=== PATIENT | male | born 1990 | race Caucasian/White ===

== ENCOUNTER 2019-09-06 11:30 | Inpatient (IN) | payer MEDICAID, OTHER ==
[~2019-09-06] VITALS: Ht 167.6 cm; Wt 65.4 kg
--- NOTE | 2019-09-06 11:41 | NUR ---
BIB RA, PT IS REFUSES TO EAT X 3 DAYS. TO ER BED 14, HOOKED TO MONITOR, CHANGED TO HOSP GOWN, PROVIDED W WARM BLANKET, BREATHING EVEN AND UNLABORED, NAD NOTED. AWAITING MD ALBERT
--- NOTE | 2019-09-06 11:50 | NUR ---
DR CID AT BEDSIDE
[2019-09-06] MEDS ORDERED: OLANZAPINE 5 MG TABLET PO ONE (12:00)
[2019-09-06 12:12] LABS: BASOPHILS % (AUTO) 0.6 % (0.0-2.0); EOSINOPHILS % (AUTO) 0.3 % (0.0-6.0); HEMATOCRIT 47 % (39-51); HEMOGLOBIN 15.8 g/dL (13.5-17.5); LYMPHOCYTES # (AUTO) 1.5 /CMM (0.8-4.8); LYMPHOCYTES % (AUTO) 16.9 % (20.0-44.0); MEAN CORPUSCULAR HGB CONC 34 g/dl (31.0-36.0); MEAN CORPUSCULAR VOLUME 91 fL (80-96); MONOCYTES # (AUTO) 0.4 /CMM (0.1-1.30); NEUTROPHILS # (AUTO) 6.6 /CMM (1.8-8.9); NEUTROPHILS % (AUTO) 77.2 % (43.0-81.0); PLATELET COUNT (AUTO) 222 /CMM (150-450); RED BLOOD CELL COUNT(AUTO) 5.16 MIL/uL (4.5-6.0); WHITE BLOOD COUNT (AUTO) 8.6 K/uL (4.3-11.0)
[2019-09-06] MEDS ORDERED: OLANZAPINE 5 MG TABLET ONE (12:16)
[2019-09-06] MEDS ORDERED: OLANZAPINE 10 MG VIAL IM ONE ×2 (12:26→12:30)
--- NOTE | 2019-09-06 12:29 | NUR ---
SHELLY DOMINGUEZ [phone] (SISTER) ADDY FUENTES [phone] ([id number])
[2019-09-06 12:34] LABS: ACETAMINOPHEN 0 ug/ml (10-30); ALANINE AMINOTRANSFERASE 16 U/L (12-78); ALBUMIN 4.9 g/dL (3.4-5.0); ALCOHOL, BLOOD < 3 mg/dL (0-0); ALKALINE PHOSPHATASE 75 U/L (46-116); ASPARTATE AMINOTRANSFERASE 14 U/L (15-37); BILIRUBIN,DIRECT 0.1 mg/dL (0.0-0.2); BILIRUBIN,TOTAL 0.6 mg/dL (0.2-1.0); CARBON DIOXIDE 18 mmol/L (21-32); CHLORIDE 103 mmol/L (98-107); GLUCOSE 70 mg/dL (74-106); POTASSIUM 4.2 mmol/L (3.5-5.1); SALICYLATE 2.9 mg/dL (2.8-20.0); SODIUM SERUM 140 mmol/L (136-145); UREA NITROGEN, BLOOD 26 mg/dL (7-18)
--- NOTE | 2019-09-06 17:21 | NUR ---
THERAPY DIRECTOR CAITY ETA 1 HOUR
--- NOTE | 2019-09-06 19:45 | NUR ---
GAVE MOVESHEET TO ADMITTING FOR INSURANCE AUTH
[2019-09-06] MEDS ORDERED: LIDOCAINE 2% JEL UROJET 10 ML MM ONE (19:54)
[2019-09-06] MEDS ORDERED: IV NS 0.9% 1,000 ML IV ONE (20:00)
--- NOTE | 2019-09-06 20:12 | NUR ---
ADDY FUENTES- BROTHER IN LAW [phone]
--- NOTE | 2019-09-06 20:13 | NUR ---
DENNIS DOMINGUEZ - SISTER [phone]
[2019-09-06] MEDS ORDERED: LORAZEPAM INJ 2 MG/ML VIAL IV ONE (20:30)
[2019-09-06] MEDS ORDERED: LORAZEPAM INJ 2 MG/ML VIAL ONE (20:53)
--- NOTE | 2019-09-06 20:58 | NUR ---
BED 324-2
--- NOTE | 2019-09-06 21:34 | NUR ---
REPORT GIVEN TO RENETTA MAURO FOR CONTINUATION OF CARE.
[2019-09-06 21:50] VITALS: BP 107/71
--- NOTE | 2019-09-06 21:55 | NUR ---
PT TRANSFERED TO VIA [facility] WITH RN AND EMT.
[2019-09-06 22:00] VITALS: BP 107/71
--- NOTE | 2019-09-06 22:00 | NUR ---
PARTS COUNTER CLERKCSR TECHNICIAN NOTES RECEIVED REPORT FROM [facility] AT 213. PATIENT TRANSFERRED FROM ER VIA [facility] AT 2150 IN STABLE IN CONDITION. TELE MONITOR READING SINUS RHYTHM, HEART RATE 86. ON ROOM AIR. NO S/S OF ACUTE RESPIRATORY DISTRESS. PATIENT IS NON-VERBAL, BUT IS ABLE TO OPEN EYES AND FOLLOW GAZE. IV PRESENT ON LEFT FOREARM, SIZE 20, INTACT & PATENT, HEP LOCKED. PATIENT NOT ABLE TO GIVE ANY INFORMATION ABOUT PAST MEDICAL HISTORY OR MEDICATIONS TAKEN AT HOME AT THIS TIME DUE TO CONDITION. PATIENT UNABLE TO SIGN BELONGINGS LIST, FORM SIGNED BY TWO NURSES. VITAL SIGNS - BP: 107/71 HR: 84 RR: 18 TEMP: 98.0 SPO2: 100. BED LOCKED, ALARM ON, SIDE RAILS X2, CALL LIGHT WITHIN REACH. WILL CONTINUE TO MONITOR.
--- NOTE | 2019-09-06 22:15 | NUR ---
PSYCHOLOGICAL SCIENCE PROFESSOR NOTES PATIENT VERBALLY RESPONDED WHEN REMOVING SOCKS; STATED "NO, I WANT TO KEEP THEM ON". WHEN ASKED ABOUT PAST MEDICAL HISTORY, PATIENT RESPONDED NO BY SHAKING HEAD. WHEN ASKED ABOUT MEDICATIONS TAKEN AT HOME, PATIENT STATED "I CAN'T REMEMBER".
[2019-09-06] MEDS ORDERED: ONDANSETRON HCL/PF 4 MG/2 ML VIAL IVP PRN (22:30)
[2019-09-06] MEDS ORDERED: Z GUARD REMEDY 2 OZ OINT TP PRN (22:30)
[2019-09-06] MEDS ORDERED: OLANZAPINE 10 MG VIAL IM PRN (22:30)
--- NOTE | 2019-09-06 22:45 | NUR ---
MS RN NOTES BENZTROPINE NOT STOCKED IN PYXIS. FAXED MED ORDER TO NURSING MEDICAL SECRETARY TEACHER IN ORDER TO RECEIVE MED STOCKED IN NIGHT LOCKER.
[2019-09-06] MEDS: IV D5/0.45 NACL 1,000 ML IV PRN (22:46)
[2019-09-06] MEDS: ENOXAPARIN SODIUM 40 MG/0.4 ML DISP.SYRIN SQ SCH (22:47)
[2019-09-06] MEDS ORDERED: BENZTROPINE MESYLATE (2MG/2ML) 2 MG/2 ML AMPUL ONE (23:18)
[2019-09-07] LABS: THYROID STIMULATING HORMONE 1.7 uIU/mL (0.358-3.74)
[2019-09-07 00:01] VITALS: BP 113/69
[2019-09-07] MEDS: BENZTROPINE MESYLATE (2MG/2ML) 2 MG/2 ML AMPUL IM SCH ×2 (00:21→09:00)
[2019-09-07 06:40] LABS: BASOPHILS % (AUTO) 0.3 % (0.0-2.0); EOSINOPHILS % (AUTO) 0.5 % (0.0-6.0); HEMATOCRIT 43 % (39-51); HEMOGLOBIN 14.5 g/dL (13.5-17.5); LYMPHOCYTES % (AUTO) 20.6 % (20.0-44.0); MEAN CORPUSCULAR HGB CONC 33 g/dl (31.0-36.0); MEAN CORPUSCULAR VOLUME 91 fL (80-96); MONOCYTES # (AUTO) 0.7 /CMM (0.1-1.30); NEUTROPHILS # (AUTO) 6.8 /CMM (1.8-8.9); NEUTROPHILS % (AUTO) 71.6 % (43.0-81.0); PLATELET COUNT (AUTO) 205 /CMM (150-450); WHITE BLOOD COUNT (AUTO) 9.5 K/uL (4.3-11.0)
[2019-09-07 06:47] LABS: ALBUMIN 4.2 g/dL (3.4-5.0); BILIRUBIN,TOTAL 0.4 mg/dL (0.2-1.0); CALCIUM, SERUM 9.3 mg/dL (8.5-10.1); CREATININE 1.1 mg/dL (0.6-1.3); POTASSIUM 3.9 mmol/L (3.5-5.1); TOTAL PROTEIN, SERUM 7.8 g/dL (6.4-8.2)
[2019-09-07 07:06] LABS: THYROID STIMULATING HORMONE 1.323 uIU/mL (0.358-3.74)
--- NOTE | 2019-09-07 07:30 | NUR ---
MS/RN Opening Note Patient received awake and alert, able to responds all stimuli. Pt none verbal in this morning, does no appears pain or any discomfort, respiratory even and unlabored in room air. Skin is warm to touch, intact IV site. Kept lower position of bed with elevated HOB. Call light within reach, will continue to monitor.
--- NOTE | 2019-09-07 07:43 | NUR ---
MS RN CLOSING NOTES PATIENT SLEEPING IN BED. A/O X1 AND IS NONVERBAL. NO S/S OF ACUTE RESPIRATORY DISTRESS AND PAIN. IV PRESENT ON LEFT FOREARM, SIZE 20, INTACT & PATENT, HEP LOCKED. BED LOCKED, ALARM ON, SIDE RAILS X2, CALL LIGHT WITHIN REACH. WILL ENDORSE TO DAY SHIFT NURSE TO FOLLOW PLAN OF CARE.
[2019-09-07 08:00] VITALS: BP 95/59
[2019-09-07] MEDS ORDERED: RISP0.2515 PO (08:40)
[2019-09-07] MEDS ORDERED: LORA-259 PO (08:40)
[2019-09-07] MEDS ORDERED: ESCI10TA PO (08:40)
--- NOTE | 2019-09-07 08:42 | NUR ---
BAFFLE MOUNTER/MED RECON MED-RECON UPDATED, INFO OBTAINED FROM SHELLY (SISTER) AND ADDY (BRO IN-LAW) [phone]. PER FAMILY "HE ONLY TAKES 3 MEDICATION AND NOTHING FOR SEIZURE". PRIMARY NURSE AWARE.
--- NOTE | 2019-09-07 11:00 | NUR ---
Pt refused Med/Benztropine x 3.
--- NOTE | 2019-09-07 13:27 | NUR ---
Social service consult requested by Dr. Sotelo for accidental overdose. Per MD notes and chart review, pt is a 29-year-old male who was brought to [facility] by ambulance for refusing to eat for the past 3 days. Pt has a history of psychiatric illness. NARAYAN met with pt. bedside along with case fitter Celia. Pt is catatonic and will not answer questions. He has reportedly been like this since he arrived to the ED yesterday. Pt was medicated with Zyprexa 10 mg yesterday with no results. CHINCHILLA MACHINE OPERATOR called pt's sister Stacy and left her a voicemail message requesting a callback.
--- NOTE | 2019-09-07 14:08 | NUR ---
[facility] received a call back from pt's brother in law Willy since pt's sister is Welsh speaking. Per Willy, pt. lives with his aunt. Pt. has a history of Catatonia. Willy reported that pt. has not been eating for the past 3 days. He refuses to go out or do anything. Per Willy, pt tends to stay in bed all day. Pt. is Welsh speaking only. Willy states, pt has a psychiatric diagnosis of Depression and Schizophrenia. Pt currently does not have any medical insurance. Pt did have insurance in the past, however family is unaware as to why he stopped having medical insurance. Family is available, if needed.
--- NOTE | 2019-09-07 14:11 | NUR ---
NARAYAN received a call from Deborah, Clinical tenant relations coordinator at [facility] . Per Deborah, pt has been receiving mental health services with them since February 27, 2019. Per Cristine, pt has a history of Catatonia. Pt last saw his psychiatrist on 08/26/2019 and was prescribed Lexapro, Ativan and Risperdal. Per Deborah, pt. has history of 5150 for grave disability. Pt. in the past has refused to take his medications and had to have a Riese hearing. Pt. was granted Riese hearing and was given injectable psychotropic medication. However, Cristine reports, pt recently had his medications changed to oral. Cristine reported that pt. did have insurance in the past through his ex-girlfriend, however family is not sure as to why pt does not have insurance. SAND SCREENER contacted insurance liaison Cayla Shabazz and left her a voicemail message regarding checking into pt's medi-greer coverage.
[2019-09-07] MEDS ORDERED: DEXTROSE 50%-WATER 50 ML DISP.SYRIN IV PRN (15:00)
[2019-09-07 16:00] VITALS: BP 104/47
[2019-09-07] MEDS: BLOOD SUGAR DIAGNOSTIC 1 EACH STRIP IN SCH ×3 (16:09→22:02)
[2019-09-07] MEDS: IV D5/0.45 NACL 1,000 ML IV PRN (16:10)
--- NOTE | 2019-09-07 18:45 | NUR ---
MS/RN Closing Note Patient stay on bed comfortably, does no appears pain or any discomfort. Skin is warm to touch, clean/dry, respiration even and unlabored with room air. Keep lower position of bed with elevated HOB. Call light within reach, will endorse night clerk auditor.
[2019-09-07 20:00] VITALS: BP 110/67
[2019-09-07] MEDS: ENOXAPARIN SODIUM 40 MG/0.4 ML DISP.SYRIN SQ SCH (22:01)
[2019-09-08] MEDS: BLOOD SUGAR DIAGNOSTIC 1 EACH STRIP IN SCH ×6 (02:20→22:06)
--- NOTE | 2019-09-08 03:08 | NUR ---
PATIENT HAS NOT VOIDED ALL DAY. BLADDER SCAN PERFORMED WITH A RESULT OF 250 ML. WHEN TRYING TO REMOVE SHORTS PATIENT REACTS BY GRASPING SHORTS AND HOLDING ON TO THEM TIGHT BEESIDES THAT HE IS CATATONIC. INFORMED KIRK WYNNE SEO PROFESSIONAL. STATES CONT TO MONITOR NO NEW ORDERS GIVEN.
[2019-09-08] MEDS: IV D5/0.45 NACL 1,000 ML IV PRN (04:27)
--- NOTE | 2019-09-08 04:36 | NUR ---
RN PM OPENING NOTE BEDSIDE REPORT RECIEVED FROM RICH MAURO. PATIENT RESTING IN BED. NOT RESPONSIVE TO VOICE, TOUCH OR SEMI PAINFUL STIMULI. IN NO APPARENT PAIN OR DISCOMFORT. PT DOES NOT TRACK PEOPLE OR THINGS IN ROOM BUT EYES ARE OPEN. SKIN WARM TO TOUCH, RESP EVEN AND UNLABORED ON RA. CALL LIGHT KEPT WITHIN REACH WILL CONT TO MONITOR. Addendum: 09/08/19 at 0656 by VALERIA WRIGHT RN PERFORMED AT 1920
--- NOTE | 2019-09-08 06:56 | NUR ---
ORDER FOR STRAIT CATH. RN PM CLOSING NOTE PATIENT RESTING IN BED. NOT RESPONSIVE TO VOICE, TOUCH OR SEMI PAINFUL STIMULI. PATIENT MOVES ON OWN OCCASIONALLOY. BLADDER SCAN REVEALS RETENTION OF 456 ML OF URINE. KIRK WYNNE SEARCH ENGINE OPTIMIZER CONTACTED NEW ORDER FOR STRAIGHT CATH PRN RECIEVED. PT DOES NOT ALLOW HIS SHORTS TO BE REMOVED SO ADDY HIS BROTHER IN LAW CONTACTED AND INFORMED OF PT NOT BEING ABLE TO PEE AND HE SPOKE WITH SISTER DENNIS WHOM STATES THAT CUTTING OFF PATIENTS SHORTS WOULD BE OK TO PERFORM THE PROCEDURE. OTHERWISE PATIENT IN NO APPARENT PAIN OR DISCOMFORT.
[2019-09-08 07:10] LABS: BASOPHILS % (AUTO) 0.4 % (0.0-2.0); HEMATOCRIT 38 % (39-51); HEMOGLOBIN 12.9 g/dL (13.5-17.5); LYMPHOCYTES # (AUTO) 2.1 /CMM (0.8-4.8); LYMPHOCYTES % (AUTO) 22.6 % (20.0-44.0); MEAN CORPUSCULAR HGB CONC 33 g/dl (31.0-36.0); MEAN CORPUSCULAR VOLUME 90 fL (80-96); MONOCYTES # (AUTO) 0.6 /CMM (0.1-1.30); MONOCYTES % (AUTO) 6.6 % (2.0-12.0); NEUTROPHILS # (AUTO) 6.4 /CMM (1.8-8.9); NEUTROPHILS % (AUTO) 69.4 % (43.0-81.0); PLATELET COUNT (AUTO) 187 /CMM (150-450); RED BLOOD CELL COUNT(AUTO) 4.29 MIL/uL (4.5-6.0); WHITE BLOOD COUNT (AUTO) 9.1 K/uL (4.3-11.0)
--- NOTE | 2019-09-08 07:15 | NUR ---
TURNER AMARO ENDORSED TO LORE STATES SHE WILL FOLLOW UP WITH TURNER AMARO. ENDORSED THAT FAMILY WILL BE BY TO GIVE PATIENT NEW PANTS SO PERRMPISSION TO CUT PANTS WAS GIVEN BY ADDY (BRO INLAW) AND DENNIS (SISTER)
--- NOTE | 2019-09-08 07:31 | NUR ---
MS/RN OPENING NOTES RECEIVED PATIENT LYING ON BED COMFORTABLY. PATIENT IS ALERT AND NON VERBAL. DENIES PAIN AT THIS TIME. IVF OF D5W 1L AT 100 ML/HR INFUSING WELL. IV LINE PATENT AND INTACT. BED IS IN LOWEST POSITION AND LOCKED. SIDE RAILS UP X2. CALL LIGHTS WITHIN REACH. WILL CONTINUE TO MONITOR.
[2019-09-08 07:33] LABS: CALCIUM, SERUM 8.5 mg/dL (8.5-10.1); CREATININE 0.9 mg/dL (0.6-1.3); MAGNESIUM 1.8 mg/dL (1.8-2.4); PHOSPHORUS 3.5 mg/dL (2.5-4.9); POTASSIUM 3.4 mmol/L (3.5-5.1)
--- NOTE | 2019-09-08 07:45 | NUR ---
MS/RN NOTES INITIATED STRAIGHT CATHETER INSERTION PATIENT IS HEATING AND AGGRESSIVE. EXPLAINED THE RISK AND BENEFITS TO INSERT THE CATHETER.
[2019-09-08 08:00] VITALS: BP 111/65
[2019-09-08] MEDS: BENZTROPINE MESYLATE (2MG/2ML) 2 MG/2 ML AMPUL IM SCH (08:26)
--- NOTE | 2019-09-08 10:01 | NUR ---
MS/RN NOTES MD IS AWARE THAT I COULDN'T INSERT STRAIGHT CATHETER DUE TO PATIENT IS HEATING AND AGGRESSIVE.
[2019-09-08] MEDS: POTASSIUM CL. PREMIX PERIPHER. 50 ML IV SCH ×2 (10:32→13:58)
--- NOTE | 2019-09-08 10:45 | NUR ---
MS/RN NOTES INITIATED TO INSERT STRAIGHT CATHETER FOR THE 3X PATIENT STILL UNCOOPERATIVE STILL HEATING AND AGGRESSIVE
--- NOTE | 2019-09-08 13:00 | NUR ---
MS/RN NOTES INITIATED TO INSERT STRAIGHT CATHETER FOR THE 4X PATIENT STILL UNCOOPERATIVE STILL HEATING AND AGGRESSIVE
[2019-09-08 16:00] VITALS: BP 99/60
--- NOTE | 2019-09-08 19:00 | NUR ---
MS/RN CLOSING NOTES PATIENT RESTING IN BED. NOT RESPONSIVE TO VOICE, TOUCH OR SEMI PAINFUL STIMULI. IN NO APPARENT PAIN OR DISCOMFORT. PT DOES NOT TRACK PEOPLE OR THINGS IN ROOM BUT EYES ARE OPEN. SKIN WARM TO TOUCH, RESP EVEN AND UNLABORED ON RA. SEEN AND EXAMINED BY PSYCHE MD WITH ORDERS MADE AND CARRIED OU PATIENT IS NO OUTPUT. CALL LIGHT KEPT WITHIN REACH. WILL CONT TO MONITOR.
--- NOTE | 2019-09-08 19:10 | NUR ---
MS RN NOTES RECEIVED PT IN BED AND AWAKE WITH FAMILY AT BEDSIDE. PT A/O X0-1 AND OPENS EYES PT ABUSABLE TO TOUCH OR SEMI PAINFUL STIMULI. NO S/S OF PAIN AT THIS TIME. RESPIRATIONS EVEN AND UNLABORED WITH NO S/S OF ACUTE DISTRESS OR SOB NOTED AT THIS TIME. PT NOTED WITHOUT IV ACCESS AT THIS TIME. SAFETY MEASURES IN PLACE WITH BED IN LOWEST LOCKED POSITION WITH SIDE RAILS UP X2. CALL LIGHT WITHIN REACH. WILL CONTINUE TO MONITOR.
[2019-09-08 20:40] VITALS: BP 112/67
[2019-09-08] MEDS: ENOXAPARIN SODIUM 40 MG/0.4 ML DISP.SYRIN SQ SCH (21:55)
--- NOTE | 2019-09-08 23:00 | NUR ---
MS RN NOTES MD CALLED NEW ORDER FOR RESTRAINTS. ALSO OK FOR MIDLINE IF UNABLE TO START IV. WILL CONTINUE TO MONITOR.
--- NOTE | 2019-09-08 23:30 | NUR ---
MS RN NOTES IN AND OUT CATH INSERTED, URINE COLLECTED AND IV STARTED. WILL CONTINUE TO MONITOR.
[2019-09-09] MEDS: BLOOD SUGAR DIAGNOSTIC 1 EACH STRIP IN SCH ×6 (02:16→21:38)
[2019-09-09 04:02] LABS: APPEARANCE,URINE CLEAR (CLEAR); BILIRUBIN,URINE NEGATIVE (NEGATIVE); BLOOD, URINE NEGATIVE Ery/uL (NEGATIVE); COLOR,URINE YELLOW (YELLOW); KETONES,URINE 40 (NEGATIVE); LEUKOCYTE ESTERASE ,URINE NEGATIVE (NEGATIVE); NITRITE, URINE NEGATIVE (NEGATIVE); PROTEIN,URINE NEGATIVE (NEGATIVE); UGLUCOSE NEGATIVE (NEGATIVE); UROBILINOGEN,URINE 0.2 EU/dL (0.2)
[2019-09-09 04:23] LABS: BACTERIA,URINE Few /HPF (None Seen); RBC,URINE 0-2 /HPF (0-2); SQUAMOUS EPITHELIAL CELL,UR Rare /HPF (None Seen); WBC,URINE 0-2 /HPF (0-3)
[2019-09-09] MEDS: IV D5/0.45 NACL 1,000 ML IV PRN (05:39)
[2019-09-09 06:17] LABS: BASOPHILS % (AUTO) 0.4 % (0.0-2.0); EOSINOPHILS % (AUTO) 0.8 % (0.0-6.0); HEMATOCRIT 42 % (39-51); HEMOGLOBIN 13.6 g/dL (13.5-17.5); LYMPHOCYTES # (AUTO) 1.3 /CMM (0.8-4.8); LYMPHOCYTES % (AUTO) 11.9 % (20.0-44.0); MEAN CORPUSCULAR HGB CONC 33 g/dl (31.0-36.0); MEAN CORPUSCULAR VOLUME 91 fL (80-96); MONOCYTES # (AUTO) 0.7 /CMM (0.1-1.30); MONOCYTES % (AUTO) 6.3 % (2.0-12.0); NEUTROPHILS % (AUTO) 80.6 % (43.0-81.0); PLATELET COUNT (AUTO) 185 /CMM (150-450); RED BLOOD CELL COUNT(AUTO) 4.58 MIL/uL (4.5-6.0); WHITE BLOOD COUNT (AUTO) 11.2 K/uL (4.3-11.0)
[2019-09-09 06:57] LABS: CALCIUM, SERUM 9.6 mg/dL (8.5-10.1); CREATININE 0.9 mg/dL (0.6-1.3); POTASSIUM 3.4 mmol/L (3.5-5.1)
--- NOTE | 2019-09-09 07:45 | NUR ---
MS/RN NOTE THE PATIENT IS RECEIVED IN BED. PATIENT AWAKE. ALERT TO SELF, THE PATIENT NON-VERBAL BUT COMMUNICATES BY NODDING AND EYES. RESPIRATION REGULAR AND UNLABORED. NO MANIFESTATION OF DISTRESS NOTED. LAC G 20 PATENT AND D5 1/2NS INFUSING AT 75ML/HR AND NO S/S INFILTRATION NOTED. BED LOW AND LOCKED. SIDE RAILS UP X3. CALL LIGHT WITHIN REACH. WILL CONTINUE TO MONITOR.
--- NOTE | 2019-09-09 08:25 | NUR ---
MS RN NOTES PT IN BED AND RESTING. PT A/O X0-1 AND OPENS EYES PT ABUSABLE TO TOUCH OR SEMI PAINFUL STIMULI. NO S/S OF PAIN AT THIS TIME. RESPIRATIONS EVEN AND UNLABORED WITH NO S/S OF ACUTE DISTRESS OR SOB NOTED AT THIS TIME. PT NOTED IV LAC #20G INFUSING D5 1/2 @75CC/HR. SAFETY MEASURES IN PLACE WITH BED IN LOWEST LOCKED POSITION WITH SIDE RAILS UP X2. PT KEPT CLEAN DRY AND COMFORTABLE. CALL LIGHT WITHIN REACH. WILL ENDORSE TO ONCOMING NURSE FOR BOLIVAR.
[2019-09-09] MEDS: HALOPERIDOL LACTATE INJ 5 MG/ML VIAL IM SCH ×3 (10:21→16:48)
[2019-09-09] MEDS: BENZTROPINE MESYLATE (2MG/2ML) 2 MG/2 ML AMPUL IM SCH ×3 (10:23→16:49)
[2019-09-09] MEDS ORDERED: POTASSIUM CL. PREMIX PERIPHER. 50 ML IV SCH (10:50)
[2019-09-09] MEDS ORDERED: POTASSIUM CHLORIDE 20 MEQ TAB.PRT.SR PO SCH (11:00)
[2019-09-09] MEDS: POTASSIUM CL. PREMIX PERIPHER. 50 ML IV SCH ×2 (11:37→12:56)
--- NOTE | 2019-09-09 12:00 | NUR ---
MS/RN NOTE THE PATIENT IS SEEN TO HAVE STABLE GAIT, CLEAR SPEECH AND ABLE TO FOLLOW COMMANDS.
--- NOTE | 2019-09-09 12:46 | NUR ---
MS/RN NOTE UPON ASSESSMENT NOTED THAT THE PATIENT DOES NOT NEED RESTRAINS, SO OBTAINED ORDER FROM JENNY DOWLING TO DISCONTINUE BILATERAL SOFT WRIST RESTRAINS. NOTED AND CARRIED OUT.
[2019-09-09 16:00] VITALS: BP 116/61
--- NOTE | 2019-09-09 18:35 | NUR ---
MS/RN NOTE THE PATIENT IS IN BED. ALERT AND ORIENTED X2. PATIENT ABLE TO MAKE NEEDS KNOWN VERBALLY. NOTED TO HAVE CLEAR SPEECH BUT ONLY WITH EPISODES OF TALKING AND THE REST OF THE TIME THE PATIENT HAS BEES EIGHT SEEPING OR AWAKE WITH FAT AFFECT. PATIENT IS SLEEPING AT THIS TIME. LAC G 20 PATENT AND D1/2 NS INFUSING AT 75ML/HR AND NO S/S INFILTRATION NOTED. PATIENT VOIDED X3 DURING THE SHIFT. NO BLADDER DISTENSION NOTED. BLADDER SCAN DONE X3 AND NOTED MAX OF 70 ML AT ONE TIME. BED LOW AND LOCKED. SIDE RAILS UP X3. CALL LIGHT WITHIN REACH. WILL ENDORSE TO ISOLATION WASHER.
--- NOTE | 2019-09-09 19:25 | NUR ---
MS RN OPENING NOTES RECEIVED PATIENT FROM MORNING SHIFT ALERT AND ORIENTED X 1-2. OPENS EYES WHEN CALLED BY HIS NAME. BREATHING REGULAR AND UNLABORED ON ROOM AIR. LEFT AC G20 IV LINE INTACT AND PATENT INFUSING WELL WITH NO BLEEDING OR S/S OF INFECTION/INFILTRATION NOTED. BODY ASSESSMENT DONE, SKIN INTACT CLEAN AND DRY. NO S/S OF PAIN/DISCOMFORT OBSERVED. BED LOW AND LOCKED ON SEMI FOWLERS POSITION. CALL LIGHT IN REACH. WILL CONTINUE TO MONITOR.
[2019-09-09 20:00] VITALS: BP 100/50
[2019-09-09] MEDS: ENOXAPARIN SODIUM 40 MG/0.4 ML DISP.SYRIN SQ SCH (21:31)
[2019-09-09 22:00] VITALS: BP 100/50
--- NOTE | 2019-09-10 01:00 | NUR ---
MS RN NOTES BS 74mg/dl AT 2100 AND 0100. NO S/S OF HYPOGLYCEMIA NOTED. WILL CONTINUE TO MONITOR.
[2019-09-10] MEDS: BLOOD SUGAR DIAGNOSTIC 1 EACH STRIP IN SCH ×6 (01:07→22:14)
--- NOTE | 2019-09-10 05:00 | NUR ---
MS RN NOTES BS 71mg/dl. NO S/S OF HYPOGLYCEMIA NOTED. WILL CONTINUE TO MONITOR.
[2019-09-10] MEDS: IV D5/0.45 NACL 1,000 ML IV PRN (05:21)
--- NOTE | 2019-09-10 06:15 | NUR ---
MS RN CLOSING NOTES PATIENT IN BED ALERT AND ORIENTED X 2-3. VERBALLY RESPONSIVE AT TIMES AND ABLE TO FOLLOW DIRECTIONS WHEN MOTIVATED. BREATHING REGULAR AND UNLABORED ON ROOM AIR. LEFT AC G20 IV LINE PATENT AND INFUSING WELL. NO COMPLAINTS OF PAIN/DISCOMFORT REPORTED THE WHOLE SHIFT. BED LOW AND LOCKED ON SEMI FOWLERS POSITION. CALL LIGHT IN REACH. WILL ENDORSE TO MORNING SHIFT FOR BOLIVAR.
[2019-09-10 06:43] LABS: BASOPHILS % (AUTO) 0.4 % (0.0-2.0); HEMATOCRIT 41 % (39-51); HEMOGLOBIN 13.8 g/dL (13.5-17.5); LYMPHOCYTES # (AUTO) 1.7 /CMM (0.8-4.8); MEAN CORPUSCULAR HGB CONC 34 g/dl (31.0-36.0); MEAN CORPUSCULAR VOLUME 90 fL (80-96); MONOCYTES # (AUTO) 0.4 /CMM (0.1-1.30); MONOCYTES % (AUTO) 5.9 % (2.0-12.0); NEUTROPHILS # (AUTO) 5.1 /CMM (1.8-8.9); NEUTROPHILS % (AUTO) 68.7 % (43.0-81.0); PLATELET COUNT (AUTO) 182 /CMM (150-450); RED BLOOD CELL COUNT(AUTO) 4.53 MIL/uL (4.5-6.0); WHITE BLOOD COUNT (AUTO) 7.4 K/uL (4.3-11.0)
[2019-09-10 06:49] LABS: CALCIUM, SERUM 9.5 mg/dL (8.5-10.1); POTASSIUM 3.1 mmol/L (3.5-5.1)
[2019-09-10 08:00] VITALS: BP 117/67
[2019-09-10] MEDS: POTASSIUM CL. PREMIX PERIPHER. 50 ML IV SCH ×2 (08:01→08:30)
--- NOTE | 2019-09-10 08:15 | NUR ---
Patient encouraged to increased PO intake. Reinforcement needed due to mental status
[2019-09-10] MEDS: HALOPERIDOL LACTATE INJ 5 MG/ML VIAL IM SCH ×3 (08:51→16:01)
[2019-09-10] MEDS: BENZTROPINE MESYLATE (2MG/2ML) 2 MG/2 ML AMPUL IM SCH ×3 (08:51→16:01)
--- NOTE | 2019-09-10 10:30 | NUR ---
Paged Dr. Purdy to inform that patient having S/E of Haldol IM. Awaiting for response
--- NOTE | 2019-09-10 12:08 | NUR ---
APPIAN BPM DEVELOPER met with pt's sister and [id number] Willy in pt's room. Willy stated that pt has a court date on 09/16 and are requesting a verification of admission letter for the pt for court. APPIAN BPM DEVELOPER to give letter to sister and Willy tomorrow at time of discharge. APPIAN BPM DEVELOPER also gave pt's family contact number to [facility] insurance Liaison Cayla Mcfarlane to f/u regarding insurance questions and concerns.
--- NOTE | 2019-09-10 12:19 | NUR ---
TRAP OPERATOR also contacted Cristine, clinical coordinator at [facility] for the pt. and updated her regarding pt's family were inquiring about wanting a social scientist in the community. Cristine informed TRAP OPERATOR, the pt. is part of the adult [facility] program and will f/u with the family regarding their concerns.
--- NOTE | 2019-09-10 13:00 | NUR ---
Barry Bernal scheduled for [address] No response [address] Purdy yet
[2019-09-10 13:52] VITALS: BP 117/67
--- NOTE | 2019-09-10 14:20 | NUR ---
Patient again in catatonic stupor. Brother-in -low at the bedside
--- NOTE | 2019-09-10 17:01 | NUR ---
patient refused accu-check scheduled for 1700 pm.
--- NOTE | 2019-09-10 18:20 | NUR ---
Patient remains in catatonic stupor at this moment. PO intake only 250ml for the shift. IV line intact and patent. Safety precautions in place : bed in low and locked position , side rails up x2 , call light within reach. Will endorse to next shift for BOLIVAR.
[2019-09-10] MEDS: ACETAMINOPHEN 325 MG TABLET PO PRN (19:50)
--- NOTE | 2019-09-10 19:50 | NUR ---
MS RN NOTES PT C/O PAIN AT LEFT GUM DUE TO SWELLING. TYLENOL GIVEN ORDERED. WILL CONTINUE TO MONITOR.
[2019-09-10] MEDS ORDERED: diphenhydrAMINE HCL 50 MG/ML VIAL IM ONE (20:00)
--- NOTE | 2019-09-10 20:00 | NUR ---
MS RN NOTES RECEIVED PT AWAKE A/O X 2-3. AUSTRALIAN SPEAKING ONLY. WITH BROTHER AT BEDSIDE. COVERING FOR MASTER FIRE CONTROL TECHNICIAN TERESITA. NOT IN ANY DISTRESS. NO SOB NOTED. WITH PAIN AT LEFT GUMS DUE TO SWELLING. CALL LIGHT WITHIN REACH. BED IN LOWEST POSITION. SR UP X 3 WITH BED ALARM ON FOR SAFETY. WILL CONTINUE TO MONITOR.
--- NOTE | 2019-09-10 20:01 | NUR ---
MS RN NOTES DR HUIZAR CAME IN AND SEEN PT. MD MADE AWARE REGARDING PT'S REACTION TO MEDICATIONS. WITH NEW ORDERS MADE. ORDERS NOTED AND CARRIED OUT. WILL CONTINUE TO MONITOR.
[2019-09-10 20:43] VITALS: BP 141/80
--- NOTE | 2019-09-10 21:00 | NUR ---
MS RN NOTES PT SLEEPING. EASILY AROUSABLE. NOT IN ANY DISTRESS. NO SOB NOTED. NO S/SX OF PAIN OR DISCOMFORT AT THIS TIME. REPORT GIVEN TO CARLA MAURO FOR CONTINUITY OF CARE.
[2019-09-10] MEDS: ENOXAPARIN SODIUM 40 MG/0.4 ML DISP.SYRIN SQ SCH (22:17)
[2019-09-11] MEDS: BLOOD SUGAR DIAGNOSTIC 1 EACH STRIP IN SCH ×6 (01:34→21:14)
[2019-09-11 03:11] VITALS: BP 141/80
[2019-09-11 07:12] LABS: BASOPHILS % (AUTO) 0.4 % (0.0-2.0); EOSINOPHILS % (AUTO) 1.2 % (0.0-6.0); HEMATOCRIT 40 % (39-51); HEMOGLOBIN 13.1 g/dL (13.5-17.5); LYMPHOCYTES # (AUTO) 2.1 /CMM (0.8-4.8); LYMPHOCYTES % (AUTO) 26.9 % (20.0-44.0); MEAN CORPUSCULAR HGB CONC 33 g/dl (31.0-36.0); MEAN CORPUSCULAR VOLUME 91 fL (80-96); MONOCYTES # (AUTO) 0.7 /CMM (0.1-1.30); MONOCYTES % (AUTO) 8.5 % (2.0-12.0); NEUTROPHILS # (AUTO) 4.9 /CMM (1.8-8.9); PLATELET COUNT (AUTO) 198 /CMM (150-450); WHITE BLOOD COUNT (AUTO) 7.7 K/uL (4.3-11.0)
--- NOTE | 2019-09-11 07:15 | NUR ---
Received patient with no IV fluids due to pain on his left antecubital iv site. Changed site to left forearm, positive blood return and flushable. IVF attached to new site, patient again complaint of pain at new site and refused to continue with IV fluids. He is alert and verbally responsive to this music writer, able to make his needs known. Noted ambulatory BRP. Stayed in bed most of the time and slept.
[2019-09-11 07:32] LABS: CALCIUM, SERUM 9.9 mg/dL (8.5-10.1); CREATININE 0.9 mg/dL (0.6-1.3); POTASSIUM 3.5 mmol/L (3.5-5.1)
[2019-09-11] MEDS: OLANZAPINE 5 MG TABLET PO SCH ×2 (08:45→15:58)
--- NOTE | 2019-09-11 09:00 | NUR ---
Patient refused accu-check scheduled for 0900 am
--- NOTE | 2019-09-11 14:32 | NUR ---
BLIND STITCH MACHINE OPERATOR typed requested of verification letter and gave it to community relations representativeclerk White on to give to the pt's family when they arrive. BLIND STITCH MACHINE OPERATOR also contacted Willy and informed him of the requested letter.
[2019-09-11] MEDS: ACETAMINOPHEN 325 MG TABLET PO PRN (15:58)
[2019-09-11 16:00] VITALS: BP 126/80
--- NOTE | 2019-09-11 18:29 | NUR ---
Patient resting in room , alert and oriented x2 at this time, VS stable on room air and within base line. Por PO intake, refused all accu-checks today. IV line remain intact and patent, patient refusing IV fluids. Patient compliant with PO meds. All needs attended. Safety precautions implemented and call light within reach. Will endorse to next shift.
--- NOTE | 2019-09-11 19:05 | NUR ---
MS RN NOTE RECEIVED PT IN STABLE CONDITION A/O 2-3 WITH TIMES OF CATATONIC STATE, NOTED IN BED. NO SIGNS OF SOB OR DISTRESS, NO INDICATION OF PAIN OR N/V. IV IN LFA #[address] ALL CURRENT NEEDS ATTENDED TO. BED LOW, LOCKED, UPPER RAILS UP, AND CALL LIGHT WITHIN REACH. WILL CONT TO MONITOR.
[2019-09-11 20:00] VITALS: BP 109/69
[2019-09-11] MEDS: ENOXAPARIN SODIUM 40 MG/0.4 ML DISP.SYRIN SQ SCH ×2 (21:00→21:08)
[2019-09-12] MEDS: BLOOD SUGAR DIAGNOSTIC 1 EACH STRIP IN SCH ×6 (01:00→20:17)
--- NOTE | 2019-09-12 01:08 | NUR ---
MS RN NOTE PT REFUSED 0100 ACCUCHECK.
--- NOTE | 2019-09-12 04:18 | NUR ---
MS RN NOTE PT REFUSED 0500 BLOOD SUGAR CHECK. WILL CONT. TO MONITOR
--- NOTE | 2019-09-12 06:32 | NUR ---
MS RN NOTE PT REMAINS IN STABLE CONDITION A/O 2-3 NOTED IN BED. NO SIGNS OF SOB OR DISTRESS, NO INDICATION OF PAIN OR N/V. IV IN LFA #[address] ALL CURRENT NEEDS ATTENDED TO. BED LOW, LOCKED, UPPER RAILS UP, AND CALL LIGHT WITHIN REACH. WILL CONT TO MONITOR AND ENDORSE TO NEXT SHIFT FOR BOLIVAR.
[2019-09-12 07:00] VITALS: BP 105/65
[2019-09-12 07:08] LABS: BASOPHILS % (AUTO) 0.4 % (0.0-2.0); EOSINOPHILS % (AUTO) 1.9 % (0.0-6.0); HEMATOCRIT 40 % (39-51); HEMOGLOBIN 13.6 g/dL (13.5-17.5); LYMPHOCYTES # (AUTO) 1.5 /CMM (0.8-4.8); LYMPHOCYTES % (AUTO) 25.4 % (20.0-44.0); MEAN CORPUSCULAR HGB CONC 34 g/dl (31.0-36.0); MEAN CORPUSCULAR VOLUME 90 fL (80-96); MONOCYTES # (AUTO) 0.5 /CMM (0.1-1.30); MONOCYTES % (AUTO) 8.1 % (2.0-12.0); NEUTROPHILS # (AUTO) 3.8 /CMM (1.8-8.9); NEUTROPHILS % (AUTO) 64.2 % (43.0-81.0); PLATELET COUNT (AUTO) 208 /CMM (150-450)
[2019-09-12 07:36] LABS: CALCIUM, SERUM 9.6 mg/dL (8.5-10.1); CREATININE 0.8 mg/dL (0.6-1.3); POTASSIUM 3.6 mmol/L (3.5-5.1)
--- NOTE | 2019-09-12 08:02 | NUR ---
rn opening notes patient received on room air, no sob noted, patient shows no s/s of pain at this time. Sleeping on his bed. A/O x2-3, per report patient has times of catatonia. L FA 22 present at this time with d 5 1/2 ns @ 75 ml per hour. Bed at the lowest setting, call light within reach, side rails up x2.
[2019-09-12] MEDS: OLANZAPINE 5 MG TABLET PO SCH ×2 (09:00→17:00)
--- NOTE | 2019-09-12 09:30 | NUR ---
rn notes Patient refuses oral medications and blood sugar check x3.
--- NOTE | 2019-09-12 13:20 | NUR ---
rn notes patient left AMA at this time. explained to the patient the benefits of staying in the hospital. patient decided to still leave at this time. IV lines removed. SANDRA paper signed. Addendum: 09/12/19 at 1419 by ARLET BURGESS RN ERROR IN CHARTING. PATIENT DID NOT LEAVE AMA. ERROR
[2019-09-12 16:00] VITALS: BP 115/62
--- NOTE | 2019-09-12 16:50 | NUR ---
rn notes Report given to Isabel MAURO for BOLIVAR
--- NOTE | 2019-09-12 18:46 | NUR ---
MS/RN NOTES PATIENT IS ALERT AND ORIENTED X2-3. NO RESPIRATORY DISTRESS NOTED. RESPIRATION REGULAR AND UNLABORED. KEPT PATIENT CLEAN AND DRY AT ALL TIMES. SEEN AND EXAMINED BY MD WITH ORDERS MADE AND CARRIED OUT. BED IN LOWEST POSITION. SIDE RAILS UP X2. CALL LIGHT WITHIN REACH. PATIENT IS FOR DISCHARGED. WILL ENDORSED TO POND SAWYER.
--- NOTE | 2019-09-12 19:47 | NUR ---
MS/RN OPENING NOTES RECEIVED PATIENT AWAKE, ALERT X3, ABLE TO RESPOND, DAUGHTER PSYCH WAS AT BEDSIDE DISCUSSED IMPORTANCE OF MEDICATION COMPLIANCE, PATIENT FOR DISCHARGE AND AWAITING [facility] FAMILY TO PICK HIM UP. WILL MONITOR, REQUESTED FOR SOME SNACKS AND DISCHARGE INSTRUCTIONS PROVIDED. RECEIVED ENDORSEMENT FROM AM RN FOR BOLIVAR.
[2019-09-12 20:00] VITALS: BP 127/89
--- NOTE | 2019-09-12 20:03 | NUR ---
MS/RN NOTES SPOKE WITH FAMILY MEMBER REPORTED HE IS STILL AT [facility] AND WILL RECEPTION MANAGER BROTHER LATER TONIGHT.
[2019-09-12] MEDS: ENOXAPARIN SODIUM 40 MG/0.4 ML DISP.SYRIN SQ SCH (20:19)
--- NOTE | 2019-09-12 20:33 | NUR ---
blood sugar check at 155. patient just had cranberry juice.
--- NOTE | 2019-09-12 23:23 | NUR ---
MS/RN NOTES PATIENT FAMILY CALLED AND INFORMED THAT PATIENT WONT BE ABLE TO BE PICKED UP TODAY PATIENT WAS DISCHARGED, MD WAS CONTACTED.
[2019-09-13] MEDS: BLOOD SUGAR DIAGNOSTIC 1 EACH STRIP IN SCH ×3 (01:00→09:11)
--- NOTE | 2019-09-13 01:28 | NUR ---
ms/rn notes PATIENT ASLEEP AND REFUSED TO HAVE BLOOD SUGAR CHECK.
--- NOTE | 2019-09-13 06:30 | NUR ---
MS/RN CLOSING NOTES RECEIVED PATIENT IN BED, ABLE TO SLEEP DURING THE NIGHT, MONITORED FOR ANY HYPO/HYPERGLYCEMIA, KEPT COMFORTABLE. BED LOCKED, CALL LIGHTS WITHIN REACH, WILL MONITOR. WILL ENDORSE TO AM RN FOR BOLIVAR.
--- NOTE | 2019-09-13 07:21 | NUR ---
MS/RN NOTES ENDORSED TO AM RN FOR BOLIVAR.
--- NOTE | 2019-09-13 07:41 | NUR ---
M/S RN OPENING NOTES PT A/O X 2-3, ASLEEP AND AROUSABLE THEN GO BACK TO SLEEP AFTER COMMUNICATING. RESPIRATION EVEN AND NON LABORED WITH NO ACUTE RESPIRATORY DISTRESS. ABD SOFT AND NON DISTENDED WITH ACTIVE BOWEL SOUNDS. DENIES PAIN AND DISCOMFORT. SKIN WARM TO TOUCH AND DRY. IV SITE AT LEFT FA, PATENT IN FLUSHING, NO S/SX ON INFILTRATION. CALL LIGHT WITHIN REACH. WILL CONTINUE TO MONITOR CARE.
[2019-09-13 08:00] VITALS: BP 104/69
--- NOTE | 2019-09-13 08:45 | NUR ---
M/S RN NOTES RECEIVED A CALL FROM ADDY ([id number]). TO SUPERVISOR OF GUIDANCE AND TESTING PATIENT TODAY AT 11 AM. PT WITH DISCHARGE ORDER SINCE 09/12/19.
[2019-09-13] MEDS: OLANZAPINE 5 MG TABLET PO SCH (09:09)
--- NOTE | 2019-09-13 12:15 | NUR ---
M/S RN NOTES PT CALLED ADDY, WILL COME IN AN HOUR. PT REFUSED BATHING. ABLE TO EAT INDEPENDENTLY. MORE ALERT AT THIS TIME WITH X4 ORIENTATION. AMBULATING IN STEADY GAIT. WILL CONTINUE TO MONITOR
--- NOTE | 2019-09-13 13:45 | NUR ---
M/S SUPERVISOR WHIPPED TOPPING NOTES PT DISCHARGE TO HOME ACCOMPANIED BY FAMILY MEMBERS. PT A/O X4, RESPONSIVE TO ALL STIMULI. NOT IN ACUTE RESPIRATORY DISTRESS. ABD SOFT AND NON DISTENDED WITH ACTIVE BOWEL SOUNDS. DENIES PAIN AND DISCOMFORT. SKIN WARM TO TOUCH AND DRY, NO NEW OPEN SKIN BREAKDOWN. EXIT CARE RE-EXPLAINED TO ADDY WITH PROVIDER INSTRUCTIONS, VERBALIZED UNDERSTANDING. IV SITE AND ID BAND REMOVED. ALL CONCERNS ATTENDED. PT LEFT IN MEDICALLY STABLE CONDITION IN SAFE ENVIRONMENT.
[2019-10-06] MEDS ORDERED: BENZ2AMP3 PO (14:35)
[2019-10-06] MEDS ORDERED: HALO5VIA9 IM (14:35)
== END 2019-09-13 13:45 | disposition home or self-care (01) | DRG 918 ==
LOC: ER 11:32 → TELE 21:02 → MED 09-07 02:32
PROVIDERS: ADMIT Nurse Practitioner Acute Care; ATTEND Nurse Practitioner Acute Care
DX: T43.91XA Poisoning by unspecified psychotropic drug, accidental (unintentional), initial encounter (principal); G24.09 Other drug induced dystonia; R40.1 Stupor; Y92.009 Unspecified place in unspecified non-institutional (private) residence as the place of occurrence of the external cause; E86.0 Dehydration; F29 Unspecified psychosis not due to a substance or known physiological condition; E87.6 Hypokalemia; F25.9 Schizoaffective disorder, unspecified; T43.505A Adverse effect of unspecified antipsychotics and neuroleptics, initial encounter; Y92.9 Unspecified place or not applicable
CPT/HCPCS: 36415; 80048-TC; 80053-TC; 80061-TC; 80076-TC; 80305; 81000-TC; 82550-TC; 82962-TC; 83540-TC; 83735-TC; 84100-TC; 84439-TC; 84443-TC; 85025-TC; 87081-TC; G0378; G0480; J0515; J1200; J1630; J1650; J2060; J3480; J3490; J7050

== ENCOUNTER 2019-10-03 13:52 | Inpatient (IN) | payer MEDICAID, OTHER ==
[~2019-10-03] VITALS: Ht 167.6 cm; Wt 65.3 kg
[~2019-10-03 13:52] MED LIST: ESCI10TA PO; LORA-259 PO; RISP0.2515 PO
--- NOTE | 2019-10-03 13:54 | NUR ---
BIB RA 39 FROM HOME, FAMILY STS THAT HE'S BEEN LAYING ON A FLOOR MATTRESS X 3 DAYS,NOT EATING/DRINKING,JUST STARING AT THE CEILING, pt to bed 15, -sob, pt on monitor, vss, pending md mckeon
[2019-10-03 14:25] LABS: BASOPHILS % (AUTO) 0.6 % (0.0-2.0); EOSINOPHILS % (AUTO) 0.3 % (0.0-6.0); HEMATOCRIT 46 % (39-51); HEMOGLOBIN 15.3 g/dL (13.5-17.5); LYMPHOCYTES # (AUTO) 1.3 /CMM (0.8-4.8); LYMPHOCYTES % (AUTO) 18.7 % (20.0-44.0); MEAN CORPUSCULAR HGB CONC 33 g/dl (31.0-36.0); MEAN CORPUSCULAR VOLUME 91 fL (80-96); MONOCYTES # (AUTO) 0.3 /CMM (0.1-1.30); MONOCYTES % (AUTO) 4.2 % (2.0-12.0); NEUTROPHILS # (AUTO) 5.4 /CMM (1.8-8.9); NEUTROPHILS % (AUTO) 76.2 % (43.0-81.0); PLATELET COUNT (AUTO) 280 /CMM (150-450); RED BLOOD CELL COUNT(AUTO) 5.06 MIL/uL (4.5-6.0); WHITE BLOOD COUNT (AUTO) 7.1 K/uL (4.3-11.0)
[2019-10-03 14:32] LABS: CALCIUM, SERUM 9.8 mg/dL (8.5-10.1); CARBON DIOXIDE 20 mmol/L (21-32); CHLORIDE 101 mmol/L (98-107); CREATININE 0.9 mg/dL (0.6-1.3); GLUCOSE 77 mg/dL (74-106); POTASSIUM 4.3 mmol/L (3.5-5.1); SODIUM SERUM 138 mmol/L (136-145); UREA NITROGEN, BLOOD 26 mg/dL (7-18)
[2019-10-03 14:37] LABS: ALANINE AMINOTRANSFERASE 33 U/L (12-78); ALBUMIN 4.9 g/dL (3.4-5.0); ALCOHOL, BLOOD < 3 mg/dL (0-0); ALKALINE PHOSPHATASE 92 U/L (46-116); ASPARTATE AMINOTRANSFERASE 15 U/L (15-37); BILIRUBIN,DIRECT 0.1 mg/dL (0.0-0.2); BILIRUBIN,TOTAL 0.7 mg/dL (0.2-1.0); TOTAL PROTEIN, SERUM 8.9 g/dL (6.4-8.2)
[2019-10-03 14:40] LABS: ACETAMINOPHEN 0 ug/ml (10-30); SALICYLATE 2.7 mg/dL (2.8-20.0)
--- NOTE | 2019-10-03 14:55 | NUR ---
blood draw deferred, pt was just given im medication. will try when pt is more calm
[2019-10-03] MEDS ORDERED: IV NS 0.9% 1,000 ML BAG IV ONE (15:30)
[2019-10-03] MEDS ORDERED: LORAZEPAM INJ 2 MG/ML VIAL IVP ONE (15:30)
[2019-10-03] MEDS ORDERED: LORAZEPAM INJ 2 MG/ML VIAL ONE ×2 (15:51→16:30)
--- NOTE | 2019-10-03 16:01 | NUR ---
ativan 1mg ivp order from dr. hirsch. unable to waste on omnicell; stock ativan 2mg vial, wasted ativan 1mg with [facility].
--- NOTE | 2019-10-03 16:08 | NUR ---
CALLED DANA, KIRK WYNNE PAGED
[2019-10-03] MEDS ORDERED: LORAZEPAM INJ 2 MG/ML VIAL IV ONE (16:30)
--- NOTE | 2019-10-03 18:08 | NUR ---
REPORT GIVEN TO JUANCARLOS MAURO FOR BOLIVAR PT WILL BE TRANSPORTED TO 3RD FLOOR
--- NOTE | 2019-10-03 18:45 | NUR ---
ADMIT FROM ER PT ADMITTED FROM ER. BROUGHT IN VIA [facility]. PY WITH ADMITTING DX OF CATATONIA. APPARENTLY PT WAS BROUGHT IN BY THE FAMILY BECAUSE HE'S BEEN LAYING DOWN ON THE FLOOR MATTRESS, NOT EATING OR DRINKING IN THE LAST 3 DAYS. PT HAS A HX OF ANXIETY, DEPRESSION AND SCHIZOPHRENIA. PT IS ABLE TO ANSWER MY QUESTIONS. HE IS ALERT AND ORIENTED X2. IV SITE NOTED ON R HAND G20 AND L HAND G 20. PER ER PTS CBC AND CHEMISTRY WERE WNL. TOXICOLOGY WAS NEGATIVE. AND WAS ALSO NEG FOR ETOH. VS TAKE NOTED AT T- 98.7, P- 99, RR- 18, BP- 1110/68, O2 SAT- 98 % ON ROOM AIR. WILL ENDORSE TO NEXT SHIFT.
--- NOTE | 2019-10-03 19:20 | NUR ---
MS RN NOTES Received patient A/O x2, responsive to speech, awake on bed. No complaints made at this time. With limited responses to admission questions. Patient denies any discomfort at this time. On RA, no respiratory distress noted. Admission orders noted and carried. Patient refused offered snacks. Kept patient on bed clean, dry and comfortable. Call light within easy reach. Will continue to monitor accordingly.
[2019-10-03] MEDS ORDERED: OLANZAPINE 10 MG VIAL IM ONE (19:30)
[2019-10-03] MEDS ORDERED: ONDANSETRON HCL/PF 4 MG/2 ML VIAL IVP PRN (19:30)
[2019-10-03] MEDS ORDERED: Z GUARD REMEDY 2 OZ OINT TP PRN (19:30)
[2019-10-03] MEDS ORDERED: ACETAMINOPHEN 325 MG TABLET PO PRN (19:30)
[2019-10-03] MEDS: IV D5/0.45 NACL 1,000 ML IV PRN (19:53)
[2019-10-03 20:59] VITALS: BP 111/63
--- NOTE | 2019-10-04 06:45 | NUR ---
MS RN CLOSING NOTES Patient on bed, easily awaken. No new complaints made. All nursing needs attended. Due meds given as ordered, no ASE noted. Kept on bed clean, dry and comfortable. On fall and aspiration precautions. Call light within easy reach. Endorsed.
--- NOTE | 2019-10-04 07:56 | NUR ---
MS/RN OPENING NOTE Patient is resting in bed, A/O x1-2, showing no signs of acute distress or SOB, saturating 100% on RA. IV line in the right hand #20g is running D5 NS @ 75cc/hr. Patient is nonverbal at this time, showing no s/sx of pain. Bed is in lowest position, side rails x3 in upright position, call light is within reach and patient is aware of how to call for assistance when needed. Will continue with plan of care.
[2019-10-04 08:00] VITALS: BP 100/64
[2019-10-04 08:23] LABS: BASOPHILS % (AUTO) 0.7 % (0.0-2.0); EOSINOPHILS % (AUTO) 1.7 % (0.0-6.0); HEMATOCRIT 41 % (39-51); HEMOGLOBIN 13.7 g/dL (13.5-17.5); LYMPHOCYTES # (AUTO) 1.5 /CMM (0.8-4.8); LYMPHOCYTES % (AUTO) 27.7 % (20.0-44.0); MEAN CORPUSCULAR HGB CONC 34 g/dl (31.0-36.0); MEAN CORPUSCULAR VOLUME 89 fL (80-96); MONOCYTES # (AUTO) 0.4 /CMM (0.1-1.30); NEUTROPHILS # (AUTO) 3.3 /CMM (1.8-8.9); NEUTROPHILS % (AUTO) 61.9 % (43.0-81.0); PLATELET COUNT (AUTO) 248 /CMM (150-450); RED BLOOD CELL COUNT(AUTO) 4.55 MIL/uL (4.5-6.0); WHITE BLOOD COUNT (AUTO) 5.3 K/uL (4.3-11.0)
[2019-10-04 08:49] LABS: BILIRUBIN,TOTAL 0.6 mg/dL (0.2-1.0); CALCIUM, SERUM 9.1 mg/dL (8.5-10.1); CREATININE 0.9 mg/dL (0.6-1.3); PHOSPHORUS 3.6 mg/dL (2.5-4.9); POTASSIUM 3.9 mmol/L (3.5-5.1); TOTAL PROTEIN, SERUM 7.5 g/dL (6.4-8.2)
[2019-10-04] MEDS ORDERED: OLANZAPINE 10 MG VIAL IM ONE (09:00)
[2019-10-04] MEDS: LORAZEPAM 1 MG TABLET PO SCH ×2 (09:00→17:00)
[2019-10-04 10:01] LABS: THYROID STIMULATING HORMONE 1.171 uIU/mL (0.358-3.74)
--- NOTE | 2019-10-04 14:00 | NUR ---
MS/RN NOTE Per Dr. Stockton and Dr. Logan Sotelo, ok to give patient IM Haloperidol and Benztropine.
[2019-10-04] MEDS: HALOPERIDOL LACTATE INJ 5 MG/ML VIAL IM SCH ×2 (15:06→17:08)
[2019-10-04] MEDS: BENZTROPINE MESYLATE (2MG/2ML) 2 MG/2 ML AMPUL IM SCH ×2 (15:06→17:07)
[2019-10-04 16:00] VITALS: BP 113/67
[2019-10-04] MEDS: IV D5/0.45 NACL 1,000 ML IV PRN (17:07)
--- NOTE | 2019-10-04 18:49 | NUR ---
MS/RN CLOSING NOTE Patient is resting in bed, A/O x1-2, showing no signs of acute distress or SOB, saturating 100% on RA. IV line in the right hand #20g is running D5 NS @ 75cc/hr. Patient is in catatonic state, nonverbal, did not eat or drink today. Bed is in lowest position, side rails x3 in upright position, call light is within reach and informed patient of how to call for assistance when needed. Will endorse to storekeeper helper. .
--- NOTE | 2019-10-04 19:45 | NUR ---
MS RN OPENING NOTES PATIENT SLEEPING IN BED COMFORTABLY; FAMILY AT BEDSIDE; A/O X1; NON-VERBAL; PATIENT IN CATATONIA STATE; NO SOB; NO S/S OF ACUTE RESPIRATORY DISTRESS NOTED; L HAND #20 SL INTACT AND PATENT FLUSHING WELL; NO S/S OF INFILTRATION OR REDNESS; R HAND #20 D51/2 NS @75ML/HR; PATIENT TOLERATING INFUSION WELL; SAFETY PRECAUTIONS IMPLEMENTED; CALL LIGHT WITHIN REACH; SIDE RAILS X2; WILL CONTINUE TO MONITOR
[2019-10-04 20:00] VITALS: BP 87/48
--- NOTE | 2019-10-04 20:47 | NUR ---
MS RN NOTES PATIENT BP LOW: 87/48 P: 72; MD MADE AWARE; 500 ML OF NS BOLUS ORDER PER DR. GRIGSBY; WILL CONTINUE TO MONITOR
[2019-10-04 22:06] VITALS: BP 87/48
--- NOTE | 2019-10-04 22:28 | NUR ---
MS RN NOTES PATIENT RECEIVED 500 ML NS BOLUS; TOLERATED WELL; BP STILL LOW: 87/39 P: 53 RR: 14; MD MADE AWARE; DR. GRIGSBY ORDERED ANOTHER 500 ML NS BOLUS; WILL ADMINISTER AND CONTINUE TO MONITOR PATIENT; CXR ORDERED FOR AM
[2019-10-05] MEDS ORDERED: IV NS 0.9% 500 ML IV ONE ×2 (04:00)
--- NOTE | 2019-10-05 06:33 | NUR ---
MS RN CLOSING NOTES PATIENT ASLEEP IN BED COMFORTABLY; NO SOB; BREATHING EVEN AND UNLABORED; PATIENT STILL IN CATATONIC STATE; PATIENT STILL NON-VERBAL; ALL NEEDS RENDERED; L HAND #20 RUNNING D5 1/2 NS @ 75ML/HR; PATIENT TOLERATING FLUIDS WELL; R HAND #20 SL INTACT AND PATENT; FLUSHING WELL; SAFETY PRECAUTIONS IMPLEMENTED; BED LOCKED IN LOW POSITION; SIDE RAILS X2; CALL LIGHT WITHIN REACH; WILL ENDORSE BOLIVAR TO ONCOMING SHIFT
[2019-10-05] MEDS: IV D5/0.45 NACL 1,000 ML IV PRN (06:40)
[2019-10-05 08:00] VITALS: BP 157/49
--- NOTE | 2019-10-05 08:00 | NUR ---
m/s cross cut saw operator: initial assessment received pt in bed awake, alert to self only. still catatonia state. call light within reach. will continue to monitor.
[2019-10-05] MEDS ORDERED: LORAZEPAM 1 MG TABLET PO PRN (10:00)
--- NOTE | 2019-10-05 10:00 | NUR ---
m/s labor delivery rn: notes pt able to feed himself for breakfast, able to the bathroom without asking for assistance. reality orientation provided prn. after pt goes to the bathroom, pt goes back to catatonia state.
[2019-10-05] MEDS: HALOPERIDOL LACTATE INJ 5 MG/ML VIAL IM SCH ×3 (10:19→18:18)
[2019-10-05] MEDS: BENZTROPINE MESYLATE (2MG/2ML) 2 MG/2 ML AMPUL IM SCH ×3 (10:23→18:24)
--- NOTE | 2019-10-05 10:30 | NUR ---
WALKING DRAGLINE OPERATOR met with pt's sister and [id number] in regards to a verification of admission letter. WALKING DRAGLINE OPERATOR completed letter and placed in pt's chart to give to them when they return back to [facility].
--- NOTE | 2019-10-05 11:05 | NUR ---
m/s business administrator: md visit seen and examined by dr. prabhakar with verbal order to give 1 liter of ns bolus. order carried out.
[2019-10-05] MEDS ORDERED: IV NS 0.9% 1,000 ML IV ONE (11:30)
--- NOTE | 2019-10-05 12:00 | NUR ---
m/s cloth mercerizer operator: notes served lunch. hob elevated. call light within reach. will monitor.
[2019-10-05 16:00] VITALS: BP 104/58
--- NOTE | 2019-10-05 17:00 | NUR ---
m/s school cafeteria cook: notes dinner served. call light within reach. will monitor.
--- NOTE | 2019-10-05 18:30 | NUR ---
m/s wet pour mixer: notes pt resting comfortable, pt behavior remains the same. doesn't talk, but able to feed self and goes to the bathroom without asking for assistance. reality orientation provided prn. needs attended. call light within reach. will continue to monitor.
--- NOTE | 2019-10-05 19:00 | NUR ---
RN MS OPENING NOTES RECEIVED PATIENT IN BED SLEEPING EASILY AROUSABLE, NON VERBAL ALERT AND ORIENTED X1 WHEN ENGAGED. RESPIRATIONS EVEN AND UNLABORED WITH EQUAL RISE AND FALL OF CHEST, APPEARS TO BE COMFORTABLE AT THIS TIME, NO FACIAL GRIMACING PRESENT, IV SITE TO RIGHT HAND #20G INTACT AND PATENT, NO REDNESS NO INFILTRATION PRESENT, LEFT HAND #20G INTACT AND PATENT, NO REDNESS, NO INFILTRATION PRESENT, IVF RUNNING ORDERED, FLUIDS AND TOILETING OFFERED,PATIENT IS ABLE TO AMBULATE TO BATHROOM STEADY. ALL NEEDS ATTENDED AT THIS TIME, WILL CONTINUE TO MONITOR AND ATTEND TO NEEDS, SAFETY PRECAUTIONS IN PLACE, LOW BED AND LOCKED. BED ALARM IN PLACE. WILL CONTINUE TO MONITOR.
--- NOTE | 2019-10-05 19:00 | NUR ---
m/s tso: notes report given to cierra (luis eduardo) for continuity of care.
[2019-10-05 20:00] VITALS: BP 105/58
[2019-10-05 20:45] VITALS: BP 105/58
--- NOTE | 2019-10-05 20:48 | NUR ---
ZUNILDA MS NOTES SPOKE TO REGARDING BLOOD PRESSURE AT 96/47, HEART RATE 69, AND S/P BOLUS THIS AM SHIFT, WITH HISTORY OF BP TRENDING LOW PATIENT IS ASYMPTOMATIC PER NO NEW ORDER AT THIS TIME, MONITOR. Addendum: 10/05/19 at 2138 by SHELLY FLORES RN disregard note wrong entry.
--- NOTE | 2019-10-06 06:26 | NUR ---
RN MS CLOSING NOTES PATIENT IN BED SLEEPING EASILY AROUSABLE, NON VERBAL ALERT AND ORIENTED X1 WHEN ENGAGED. NOTED ABLE TO FOLLOW SIMPLE DIRECTIONS, ABLE TO AMBULATE TO THE RESTROOM STEADY GAIT NOTED. ATTEMPTED TO DO SKIN ASSESSMENT HOWEVER PATIENT REFUSED NODDING HEAD NO WHEN ASKED. RESPIRATIONS EVEN AND UNLABORED WITH EQUAL RISE AND FALL OF CHEST, APPEARS TO BE COMFORTABLE AT THIS TIME, NO FACIAL GRIMACING PRESENT, IV SITE TO RIGHT HAND #20G INTACT AND PATENT, NO REDNESS NO INFILTRATION PRESENT, LEFT HAND #20G INTACT AND PATENT, NO REDNESS, NO INFILTRATION PRESENT, IVF RUNNING ORDERED, FLUIDS AND TOILETING OFFERED,ALL NEEDS ATTENDED AT THIS TIME, WILL CONTINUE TO MONITOR AND ENDORSE TO NEXT SHIFT, SAFETY PRECAUTIONS IN PLACE, LOW BED AND LOCKED. BED ALARM IN PLACE. WILL CONTINUE TO MONITOR.
--- NOTE | 2019-10-06 08:15 | NUR ---
MS RN OPENING NOTES RECEIVED PT IN BED, AWAKE, A/O X3. PT TOLERATING RA, WITH NO ACUTE RESPIRATORY DISTRESS. PT DENIES ANY PAIN OR DISCOMFRT AT THIS TIME. PT DENIES ANY CONCERNS OR QUESTIONS AT THIS TIME. PIV TO LHAND 20 AND R HAND 20, FLUSHED WITH NS, INTACT AND OPERATIONAL. PE PT REFUSED TO BE HOOKED TO IVF AT THE MOMENT. PT KEPT COMFORTABLE IN BED. CALL LIGHT KEPT WITHIN REACH. PT'S BED IN LOWEST AND LOCKED POSITION WITH SR X3.
[2019-10-06 09:05] VITALS: BP 109/71
[2019-10-06] MEDS: HALOPERIDOL LACTATE INJ 5 MG/ML VIAL IM SCH ×3 (09:33→18:19)
[2019-10-06] MEDS: BENZTROPINE MESYLATE (2MG/2ML) 2 MG/2 ML AMPUL IM SCH ×3 (09:33→18:19)
--- NOTE | 2019-10-06 12:30 | NUR ---
MS RN NOTES MADE AWARE HOSPITALIST/LW REGARDING DR SIMPSON'S ORDER FOR DISCHARGE. PER DR. SIMPSON LW CAN CHANGE MEDICINE TO PO WITH SAME DOSAGE. SPOKE TO PT AND SISTER, AWARE OF THE PLAN.
[2019-10-06] MEDS ORDERED: BENZ2AMP3 PO (14:35)
[2019-10-06] MEDS ORDERED: HALO5VIA9 IM (14:35)
[2019-10-06] MEDS ORDERED: HALO5TAB8 PO (14:48)
[2019-10-06] MEDS ORDERED: BENZ1TAB7 PO (14:50)
[2019-10-06 15:45] VITALS: BP_SYST 109; BP_SYST 116; BP_DIAS 59; BP_DIAS 71
--- NOTE | 2019-10-06 19:40 | NUR ---
MS RN CLOSING NOTES PT REMAINS IN BED, AWAKE, A/O X3. PT TOLERATING RA, WITH NO ACUTE RESPIRATORY DISTRESS. PT DENIES ANY PAIN OR DISCOMFORT AT THIS TIME. PT DENIES ANY CONCERNS OR QUESTIONS AT THIS TIME. PIV TO LHAND 20 AND R HAND 20, BOTH FLUSHED WITH NS, INTACT AND OPERATIONAL. PT SCHEDULED FOR DISCHARGE TONIGHT AT 8 PM. FAMILY/SISTER/ADDY MADE AWARE OF IT. ALL NEEDS AND CARE ATTENDED. PT KEPT COMFORTABLE IN BED. CALL LIGHT KEPT WITHIN REACH. PT'S BED IN LOWEST AND LOCKED POSITION WITH SR X3. ENDORSED TO SENIOR CONTRACTS ADMINISTRATOR NURSE FOR BOLIVAR.
--- NOTE | 2019-10-06 19:55 | NUR ---
RN NOTES RECEIVED PATIENT CALM RESTING COMFORTABLY, NO SIGNS OF DISTRESS, AWAITING FOR SISTER TO PICK HIM UP FOR DISCHARGE, ALL NEEDS ANTICIPATED, KEEP CLEAN WARM AND COMFORTABLE. WILL MONITOR ACCORDINGLY.
--- NOTE | 2019-10-06 20:43 | NUR ---
RN NOTES PATIENT PICKED UP BY FAMILY MEMBERS ( SISTER AND BROTHER [place] ), ALL BELONGINGS ACCOUNTED FOR, HEALTH TEACHINGS GIVEN, DISCHARGE PACKET PROVIDED AND SIGNED, NO NEW CONCERNS MADE, ALL NEEDS ATTENDED, PATIENT LEFT THE UNIT AT 2039. CHARGE NURSE CASIMIRO AWARE OF DISCHARGE.
== END 2019-10-06 20:40 | disposition home or self-care (01) | DRG 750 ==
LOC: ER 13:52 → MED 18:21
PROVIDERS: ADMIT Nurse Practitioner Acute Care; ATTEND Registered Nurse
DX: F20.2 Catatonic schizophrenia (principal); E86.0 Dehydration; F32.9 Major depressive disorder, single episode, unspecified; F29 Unspecified psychosis not due to a substance or known physiological condition; Z79.899 Other long term (current) drug therapy; F94.0 Selective mutism; Z87.891 Personal history of nicotine dependence; Z91.14 Patient's other noncompliance with medication regimen; Z91.19 Patient's noncompliance with other medical treatment and regimen
CPT/HCPCS: 36415; 71045-TC; 80048-TC; 80053-TC; 80061-TC; 80076-TC; 82550-TC; 83735-TC; 84100-TC; 84443-TC; 85025-TC; 87081-TC; G0378; G0480; J0515; J1630; J2060; J3490; J7040

== ENCOUNTER 2019-10-24 22:25 | Inpatient (IN) | payer MEDICAID ==
[~2019-10-24] VITALS: Ht 172.7 cm; Wt 66.7 kg
[~2019-10-24 22:25] MED LIST changes: +BENZ1TAB7 PO; -ESCI10TA PO; +HALO5TAB8 PO; -RISP0.2515 PO
--- NOTE | 2019-10-24 22:35 | NUR ---
PT BIBRA C/O CATATONIA. PT NONVERBAL, UNABLE TO RESPOND TO QUESTIONS, VSS AT THIS TIME, RR EVEN AND UNLABORED ON RA W/ NAD NOTED. PT CONNECTED TO THE GERIATRIC ASSISTANT AND POX.
[2019-10-24] MEDS ORDERED: HALOPERIDOL DECANOATE IM 100 MG/ML AMPUL IM ONE (23:00)
[2019-10-24 23:19] LABS: BASOPHILS # (AUTO) 0.1 /CMM (0.0-0.2); BASOPHILS % (AUTO) 0.7 % (0.0-2.0); EOSINOPHILS % (AUTO) 0.7 % (0.0-6.0); HEMATOCRIT 42 % (39-51); HEMOGLOBIN 14.2 g/dL (13.5-17.5); LYMPHOCYTES % (AUTO) 23.9 % (20.0-44.0); MEAN CORPUSCULAR HGB CONC 34 g/dl (31.0-36.0); MEAN CORPUSCULAR VOLUME 89 fL (80-96); MONOCYTES # (AUTO) 0.4 /CMM (0.1-1.30); MONOCYTES % (AUTO) 4.6 % (2.0-12.0); NEUTROPHILS % (AUTO) 70.1 % (43.0-81.0); PLATELET COUNT (AUTO) 248 /CMM (150-450); RED BLOOD CELL COUNT(AUTO) 4.72 MIL/uL (4.5-6.0); WHITE BLOOD COUNT (AUTO) 8.6 K/uL (4.3-11.0)
[2019-10-24 23:28] LABS: CALCIUM, SERUM 9.7 mg/dL (8.5-10.1); CREATININE 0.9 mg/dL (0.6-1.3); POTASSIUM 3.9 mmol/L (3.5-5.1)
--- NOTE | 2019-10-25 02:49 | NUR ---
BED ASSIGNMENT 306-2
[2019-10-25] MEDS ORDERED: MAG HYDROX/AL HYDROX/SIMETH 30 ML UDC PO PRN (03:00)
[2019-10-25] MEDS ORDERED: ACETAMINOPHEN 325 MG TABLET PO PRN (03:00)
[2019-10-25] MEDS ORDERED: Z GUARD REMEDY 2 OZ OINT TP PRN (03:00)
[2019-10-25] MEDS ORDERED: MAGNESIUM HYDROXIDE 30 ML UDC PO PRN (03:00)
[2019-10-25] MEDS ORDERED: LORAZEPAM 1 MG TABLET PO PRN (03:00)
[2019-10-25] MEDS ORDERED: ONDANSETRON HCL/PF 4 MG/2 ML VIAL IVP PRN (03:00)
--- NOTE | 2019-10-25 03:01 | NUR ---
REPORT GIVEN TO ZUNILDA PATEL
--- NOTE | 2019-10-25 03:08 | NUR ---
PT TAKEN TO ROOM IN STABLE CONDITION
[2019-10-25 03:10] VITALS: BP 107/62
--- NOTE | 2019-10-25 03:10 | NUR ---
MS RN NOTES RECEIVED FROM ER PER TONIO THIS 29 YO MALE,ALERT,ORIENTED X3,NO VERBAL.AMBULATORY.DIAGNOSIS OF PSYCHOSIS,WITH KNOWN HX OF DEPRESSION AND CATATONIA AND WITH WITH MULTIPLE ADMISSION DUE TO CATATONIA.WITH SALINE LOCK RIGHT AC INTACT AND PATENT.NO SKIN ISSUES.WILL CONTINUE TO MONITOR BEHAVIOR AND MANAGE ACCORDINGLY.
[2019-10-25 03:15] VITALS: BP 107/62
--- NOTE | 2019-10-25 03:30 | NUR ---
MS RN NOTES AWAKE AND GET OUT OF BED,USE THE RESTROOM
--- NOTE | 2019-10-25 06:39 | NUR ---
MS RN NOTES ON BED,REMAINS CATATONIC,SALINE LOCK IN PLACE,IN NO ACUTE DISTRESS WILL ENDORSE TO DAY NURSE FOR BOLIVAR.
--- NOTE | 2019-10-25 07:30 | NUR ---
RN MS NOTES PT IN BED, ASLEEP, AROUSABLE BY PAINFUL STIMULI, NON VERBAL, WENT BACK TO SLEEP, RESPIRATIONS NORMAL, CALL LIGHT WITHIN REACH, WILL CONTINUE TO MONITOR.
--- NOTE | 2019-10-25 08:00 | NUR ---
RN MS NOTES PT IN BED, SEEN BY DR. ESQUEDA, STILL NON VERBAL.
[2019-10-25 08:27] VITALS: BP 100/58
[2019-10-25] MEDS: BENZTROPINE MESYLATE (1 MG) 1 MG TABLET PO SCH ×4 (09:00→17:00)
[2019-10-25] MEDS: HALOPERIDOL 5 MG TABLET PO SCH ×4 (09:00→17:00)
--- NOTE | 2019-10-25 12:08 | NUR ---
RN MS NOTES PT IN BED, AWAKE, NON VERBAL, NOT IN DISTRESS, NO FACIAL GRIMACING, SKIN WARM TO TOUCH, PT REFUSED BREAKFAST AND MD ORIANA AWARE, NO NEW ORDER.
[2019-10-25 16:00] VITALS: BP 106/63
[2019-10-25] MEDS: HALOPERIDOL LACTATE INJ 5 MG/ML VIAL IM SCH (18:52)
[2019-10-25] MEDS: BENZTROPINE MESYLATE (2MG/2ML) 2 MG/2 ML AMPUL IM SCH (18:53)
--- NOTE | 2019-10-25 18:54 | NUR ---
TOOLMAKER HELPER NOTES PT IN BED, AWAKE, NON RESPONSIVE TO VERBAL STIMULI BUT RESPONSIVE TO PAINFUL STIMULI, STILL REFUSES TO EAT AND REFUSES TO TAKE HIS ORAL MEDS, DR. ESQUEDA INFORMED, PER MD HOLGUIN TO CHANGE HALDOL AND COGENTIN TO IM, NOTED AND CARRIED OUT, PT PLACED ON TELE MONITORING PER PROTOCOL, SR 85 ON THE MONITOR, NO SIGN OF PAIN OR DISTRESS, PM CARE PROVIDED, WILL ENDORSE TO NEXT SHIFT FOR CONTINUITY OF CARE AND MONITORING.
--- NOTE | 2019-10-25 19:30 | NUR ---
HEEL ATTACHER NOTE: PATIENT RESTING IN BED, NO ACUTE DISTRESS NOTED. BREATHING EVEN AND UNLABORED, NO SOB NOTED. IV TO RAC IN PLACE. BED LOCKED AND IN LOWEST POSITION, CALL LIGHT IN REACH. WILL CONTINUE TO MONITOR.
[2019-10-25 20:39] VITALS: BP 106/63
--- NOTE | 2019-10-25 23:00 | NUR ---
MARKETING DESIGNER NOTE: PATIENT UP OUT OF BED AND REQUESTING FOR JUICE. PATIENT THEN BACK TO BED AND NOT SPEAKING AGAIN. BED LOCKED AND IN LOWEST POSITION, CALL LIGHT IN REACH. WILL CONTINUE TO MONITOR.
[2019-10-26] VITALS: BP 112/71
--- NOTE | 2019-10-26 06:05 | NUR ---
PERSONAL COMPUTER NETWORK ANALYST NOTE: PATIENT RESTING IN BED, NO ACUTE DISTRESS NOTED. BREATHING EVEN AND UNLABORED, NO SOB NOTED. IV TO RAC IN PLACE. BED LOCKED AND IN LOWEST POSITION, CALL LIGHT IN REACH. WILL ENDORSE TO DAY NURSE TO CONTINUE WITH PLAN OF CARE. Addendum: 10/26/19 at 0625 by RAMA SALINAS RN TELE READING 70
[2019-10-26 06:36] LABS: BASOPHILS % (AUTO) 0.6 % (0.0-2.0); EOSINOPHILS % (AUTO) 0.7 % (0.0-6.0); HEMATOCRIT 44 % (39-51); HEMOGLOBIN 14.7 g/dL (13.5-17.5); LYMPHOCYTES # (AUTO) 1.7 /CMM (0.8-4.8); LYMPHOCYTES % (AUTO) 24.1 % (20.0-44.0); MEAN CORPUSCULAR HGB CONC 34 g/dl (31.0-36.0); MEAN CORPUSCULAR VOLUME 89 fL (80-96); MONOCYTES # (AUTO) 0.5 /CMM (0.1-1.30); MONOCYTES % (AUTO) 6.5 % (2.0-12.0); NEUTROPHILS # (AUTO) 4.9 /CMM (1.8-8.9); NEUTROPHILS % (AUTO) 68.1 % (43.0-81.0); PLATELET COUNT (AUTO) 270 /CMM (150-450); RED BLOOD CELL COUNT(AUTO) 4.94 MIL/uL (4.5-6.0); WHITE BLOOD COUNT (AUTO) 7.1 K/uL (4.3-11.0)
[2019-10-26 07:02] LABS: CALCIUM, SERUM 9.8 mg/dL (8.5-10.1); CREATININE 0.8 mg/dL (0.6-1.3); MAGNESIUM 2.4 mg/dL (1.8-2.4); PHOSPHORUS 4.8 mg/dL (2.5-4.9); POTASSIUM 3.8 mmol/L (3.5-5.1)
--- NOTE | 2019-10-26 07:54 | NUR ---
TELE/RN OPENING NOTES RECEIVED PATIENT IN BED, AWAKE, NON RESPONSIVE TO VERBAL STIMULI BUT RESPONSIVE TO PAINFUL STIMULI, PATIENT IS ON TELE MONITORING PER PROTOCOL, SINUS RHYTHM 85. NO SIGN OF PAIN OR DISTRESS, WILL CONTINUE TO MONITOR.
[2019-10-26] MEDS: HALOPERIDOL LACTATE INJ 5 MG/ML VIAL IM SCH ×3 (08:22→16:20)
[2019-10-26 09:43] VITALS: BP 103/71
[2019-10-26] MEDS: BENZTROPINE MESYLATE (2MG/2ML) 2 MG/2 ML AMPUL IM SCH ×3 (10:20→16:21)
[2019-10-26 17:05] VITALS: BP 103/65
--- NOTE | 2019-10-26 18:56 | NUR ---
MS/RN CLOSING NOTES PATIENT LYING ON THE BED COMFORTABLY. PATIENT IS ALERT AND ORIENTED X2. NO APPARENT DISTRESS NOTED.DENIES ANY PAIN OR DISCOMFORT AT THIS TIME. IV LINE AT RIGHT SEEN AND EXAMINED BY MD WITH ORDERS MADE AND CARRIED OUT. ALL DUE MEDS WAS GIVEN ORDERED, NO ADVERSE REACTIONS. SEEN AND EXAMINED BY PSYCHE DOCTOR NO NEW ORDER AT THIS TIME. ALL NEEDS WAS ATTENDED. SAFETY PRECAUTION IN PLACED. BED IN LOWEST POSITION SIDE RAILS UP X2. CALL LIGHT WITH IN REACH. WILL ENDORSED TO HOTEL DIRECTOR FOR BOLIVAR.
--- NOTE | 2019-10-26 19:05 | NUR ---
RN MS OPENING NOTES RECEIVED PATIENT IN BED AWAKE ALERT AND ORIENTED X2, AT THIS TIME PATIENT JUST NODDS HEAD YES OR NO. IV SITE TO RIGHT AC #20SL. DENIES PAIN AT THIS TIME WITH HEAD NODD NO. ORIENTED TO STAFF AND CALL LIGHT AND KEPT WITHIN REACH, RESPIRATIONS EVEN AND UNLABORED WITH EQUAL RISE AND FALL OF CHEST, FLUIDS AND JUICE PROVIDED, ALL NEEDS ATTENDED AT THIS TIME , WILL CONTINUE TO MONITOR.
[2019-10-26 20:00] VITALS: BP 116/67
--- NOTE | 2019-10-27 06:14 | NUR ---
RN MS NOTES PATIENT STATES "HE FEELS ANXIOUS WOULD LIKE SOMETHING FOR ANXIETY" ATIVAN PO OFFERED PATIENT AGREED ATIVAN ORDERED GIVEN.
[2019-10-27 06:32] LABS: BASOPHILS % (AUTO) 0.4 % (0.0-2.0); EOSINOPHILS % (AUTO) 0.3 % (0.0-6.0); HEMATOCRIT 44 % (39-51); HEMOGLOBIN 14.5 g/dL (13.5-17.5); LYMPHOCYTES # (AUTO) 1.5 /CMM (0.8-4.8); LYMPHOCYTES % (AUTO) 13.1 % (20.0-44.0); MEAN CORPUSCULAR HGB CONC 33 g/dl (31.0-36.0); MEAN CORPUSCULAR VOLUME 89 fL (80-96); MONOCYTES # (AUTO) 0.5 /CMM (0.1-1.30); MONOCYTES % (AUTO) 4.9 % (2.0-12.0); NEUTROPHILS # (AUTO) 9.1 /CMM (1.8-8.9); NEUTROPHILS % (AUTO) 81.3 % (43.0-81.0); PLATELET COUNT (AUTO) 256 /CMM (150-450); RED BLOOD CELL COUNT(AUTO) 4.89 MIL/uL (4.5-6.0); WHITE BLOOD COUNT (AUTO) 11.2 K/uL (4.3-11.0)
--- NOTE | 2019-10-27 06:37 | NUR ---
RN MS CLOSING NOTES PATIENT IN BED AWAKE ALERT AND ORIENTED X2, AT THIS TIME PATIENT IS TALKING MAKING NEEDS KNOWN. IV SITE TO RIGHT AC #20SL. INTACT AND PATENT NO REDNESS NO INFILTRATION. DENIES PAIN AT THIS TIME . CALL LIGHT KEPT WITHIN REACH, RESPIRATIONS EVEN AND UNLABORED WITH EQUAL RISE AND FALL OF CHEST, FLUIDS AND JUICE PROVIDED, ALL NEEDS ATTENDED AT THIS TIME , WILL CONTINUE TO MONITOR AND ENDORSE TO NEXT SHIFT, PATIENT WAS ABLE TO REQUEST MEDICATION FOR ANXIETY AND WAS ABLE TO TAKE MEDICATION WITH NO ISSUE.
[2019-10-27 06:48] LABS: CALCIUM, SERUM 9.4 mg/dL (8.5-10.1); CREATININE 0.9 mg/dL (0.6-1.3); POTASSIUM 3.8 mmol/L (3.5-5.1)
--- NOTE | 2019-10-27 07:53 | NUR ---
rn opening notes patient received on room air, no sob noted, patient able to walk with good balance. Speaks Greek mostly. RAC 20 S/L present at this time. Bed at the lowest setting, call light within reach, side rails upx2.
[2019-10-27 08:00] VITALS: BP 134/87
[2019-10-27] MEDS: HALOPERIDOL LACTATE INJ 5 MG/ML VIAL IM SCH ×2 (08:19→12:50)
[2019-10-27] MEDS: BENZTROPINE MESYLATE (2MG/2ML) 2 MG/2 ML AMPUL IM SCH ×2 (08:20→12:50)
--- NOTE | 2019-10-27 16:30 | NUR ---
rn notes patient d/c at this time. Patient had a low fever in the beginning of the shift and refused tylenol x3. Asked again in the afternoon and patient refused again. Patient's belonging with him at this time. Nothing was missing and all paper signed. Picked up by family member.
== END 2019-10-27 16:15 | disposition home or self-care (01) | DRG 750 ==
LOC: ER 22:29 → MED 10-25 02:54 → TELE 10-25 18:29 → MED 10-26 08:59
PROVIDERS: ADMIT Family Medicine; ATTEND Student in an Organized Health Care Education/Training Program
DX: F20.2 Catatonic schizophrenia (principal); N17.0 Acute kidney failure with tubular necrosis; F32.9 Major depressive disorder, single episode, unspecified; Z87.891 Personal history of nicotine dependence
CPT/HCPCS: 36415; 80048-TC; 83735-TC; 84100-TC; 85025-TC; 87081-TC; G0378; J0515; J1630; J1631

== ENCOUNTER 2019-10-29 17:16 | Emergency (ER) | payer MEDICAID ==
[~2019-10-29] VITALS: Ht 177.8 cm; Wt 67.1 kg
[2019-10-29 17:22] VITALS: BP 111/65
[2019-10-29] MEDS ORDERED: chlorproMAZINE HCL 25 MG TABLET PO ONE (17:30)
[2019-10-29] MEDS ORDERED: BENZTROPINE MESYLATE (1 MG) 1 MG TABLET PO ONE (17:30)
[2019-10-29] MEDS ORDERED: BENZTROPINE MESYLATE (1 MG) 1 MG TABLET ONE (17:33)
[2019-10-29] MEDS ORDERED: chlorproMAZINE HCL 25 MG TABLET ONE (17:33)
--- NOTE | 2019-10-29 17:41 | NUR ---
Patient discharged to home in stable condition. Written and verbal after care instructions given. Patient verbalizes understanding of instruction. Pt Dx w/hiccups. Pt ambulated out with a steady gait.
== END 2019-10-29 17:42 | disposition home or self-care (01) ==
LOC: ER 17:20
DX: R06.6 Hiccough (principal); F32.9 Major depressive disorder, single episode, unspecified; F20.9 Schizophrenia, unspecified; Z79.899 Other long term (current) drug therapy
CPT/HCPCS: 99283; Q0161

== ENCOUNTER 2019-11-26 12:16 | Emergency (ER) | payer MEDICAID ==
[~2019-11-26] VITALS: Ht 177.8 cm; Wt 68.0 kg
[2019-11-26] MEDS ORDERED: LORAZEPAM INJ 2 MG/ML VIAL ONE ×2 (12:28→14:02)
[2019-11-26] MEDS ORDERED: LORAZEPAM INJ 2 MG/ML VIAL IVP ONE (12:30)
[2019-11-26 12:34] VITALS: BP 110/65
--- NOTE | 2019-11-26 12:34 | NUR ---
LINE STARTED ON R AC G 20, BLOOD DRAWN FROM LINE AND SENT TO LAB
[2019-11-26 12:36] LABS: BASOPHILS % (AUTO) 0.5 % (0.0-2.0); EOSINOPHILS % (AUTO) 0.5 % (0.0-6.0); HEMATOCRIT 40 % (39-51); HEMOGLOBIN 13.5 g/dL (13.5-17.5); LYMPHOCYTES # (AUTO) 1.5 /CMM (0.8-4.8); LYMPHOCYTES % (AUTO) 19.3 % (20.0-44.0); MEAN CORPUSCULAR HGB CONC 34 g/dl (31.0-36.0); MEAN CORPUSCULAR VOLUME 89 fL (80-96); MONOCYTES # (AUTO) 0.4 /CMM (0.1-1.30); MONOCYTES % (AUTO) 4.5 % (2.0-12.0); NEUTROPHILS # (AUTO) 5.9 /CMM (1.8-8.9); NEUTROPHILS % (AUTO) 75.2 % (43.0-81.0); PLATELET COUNT (AUTO) 243 /CMM (150-450); RED BLOOD CELL COUNT(AUTO) 4.52 MIL/uL (4.5-6.0); WHITE BLOOD COUNT (AUTO) 7.8 K/uL (4.3-11.0)
[2019-11-26 12:43] LABS: CALCIUM, SERUM 9.7 mg/dL (8.5-10.1); CARBON DIOXIDE 27 mmol/L (21-32); CHLORIDE 103 mmol/L (98-107); GLUCOSE 89 mg/dL (74-106); POTASSIUM 4.1 mmol/L (3.5-5.1); SODIUM SERUM 140 mmol/L (136-145); UREA NITROGEN, BLOOD 17 mg/dL (7-18)
[2019-11-26 12:48] LABS: ALANINE AMINOTRANSFERASE 21 U/L (12-78); ALBUMIN 4.7 g/dL (3.4-5.0); ALCOHOL, BLOOD < 3 mg/dL (0-0); ALKALINE PHOSPHATASE 73 U/L (46-116); ASPARTATE AMINOTRANSFERASE 12 U/L (15-37); BILIRUBIN,DIRECT 0.1 mg/dL (0.0-0.2); BILIRUBIN,TOTAL 0.7 mg/dL (0.2-1.0); TOTAL PROTEIN, SERUM 8.2 g/dL (6.4-8.2)
[2019-11-26 12:49] LABS: ACETAMINOPHEN 0 ug/ml (10-30); SALICYLATE 0.4 mg/dL (2.8-20.0)
[2019-11-26 12:52] LABS: APPEARANCE,URINE Clear (CLEAR); BILIRUBIN,URINE Negative (NEGATIVE); BLOOD, URINE Trace-intact Ery/uL (NEGATIVE); COLOR,URINE Yellow (YELLOW); KETONES,URINE Trace (NEGATIVE); LEUKOCYTE ESTERASE ,URINE Negative (NEGATIVE); NITRITE, URINE Negative (NEGATIVE); PROTEIN,URINE Negative (NEGATIVE); UGLUCOSE Negative (NEGATIVE); UROBILINOGEN,URINE 0.2 EU/dL (0.2)
[2019-11-26 12:54] LABS: BACTERIA,URINE None seen /HPF (None Seen); RBC,URINE 0-2 /HPF (0-2); SQUAMOUS EPITHELIAL CELL,UR Rare /HPF (None Seen); WBC,URINE 0-2 /HPF (0-3)
[2019-11-26] MEDS ORDERED: LORAZEPAM INJ 2 MG/ML VIAL IV ONE (14:00)
--- NOTE | 2019-11-26 14:13 | NUR ---
CALLED [facility] [phone] ETA 90 MINS.
--- NOTE | 2019-11-26 15:53 | NUR ---
Noted patient is awake now able response yes and no Artis CROWa for boilermaker welder patient able to move his eyes and follows tract ,he response to verbal stimuli continue to monitor
--- NOTE | 2019-11-26 16:36 | NUR ---
[facility] ETA 30 MIN
--- NOTE | 2019-11-26 18:00 | NUR ---
Patient awake alert noted able to response simple question ,Daily @ bedside DC home intruction given and refferals patient agrees to follow up [place] ,I removed heplock RAC noted no edema no pain ,
== END 2019-11-26 18:21 | disposition home or self-care (01) ==
LOC: ER 12:22
DX: F20.2 Catatonic schizophrenia (principal); F32.9 Major depressive disorder, single episode, unspecified; Z79.899 Other long term (current) drug therapy
CPT/HCPCS: 36415; 80048; 80076; 80305; 80307; 80329; 81001; 82550; 85025; 96374; 96376; 99284; G0480; J2060 ×2; 81000-TC